=== PATIENT | male | born 1940 | race Two or more races ===

== ENCOUNTER 2016-09-02 01:29 | Inpatient (IN) | payer OTHER ==
[~2016-09-02] VITALS: Ht 165.1 cm; Wt 75.7 kg
[2016-09-02] MEDS ORDERED: MORPHINE SULFATE INJ 2 MG/ML DISP.SYRIN ONE (01:40)
[2016-09-02] MEDS ORDERED: ONDANSETRON HCL/PF 4 MG/2 ML VIAL ONE (01:40)
[2016-09-02 01:50] LABS: BASOPHILS # (AUTO) 0.1 /CMM (0.0-0.2); BASOPHILS % (AUTO) 0.7 % (0.0-2.0); DIFF TOTAL % 100 %; EOSINOPHILS # (AUTO) 0.2 /CMM (0.0-0.7); EOSINOPHILS % (AUTO) 1.7 % (0.0-6.0); HEMATOCRIT 48 % (39-51); HEMOGLOBIN 16.1 g/dL (13.5-17.5); LYMPHOCYTES % (AUTO) 28.6 % (20.0-44.0); MEAN CORPUSCULAR HEMOGLOBIN 30 PG (26.0-33.0); MEAN CORPUSCULAR HGB CONC 33 g/dl (31.0-36.0); MEAN CORPUSCULAR VOLUME 88 fL (80-96); MONOCYTES # (AUTO) 1.5 /CMM (0.1-1.30); MONOCYTES % (AUTO) 10.4 % (2.0-12.0); NEUTROPHILS # (AUTO) 8.3 /CMM (1.8-8.9); NEUTROPHILS % (AUTO) 58.6 % (43.0-81.0); PLATELET COUNT (AUTO) 204 /CMM (150-450); RED BLOOD CELL COUNT(AUTO) 5.48 MIL/uL (4.5-6.0); WHITE BLOOD COUNT (AUTO) 14.1 K/uL (4.3-11.0)
[2016-09-02] MEDS ORDERED: CT SWABBABLE VALVE TRANS SET 1 EA INFUS.SET MC ONE (01:53)
[2016-09-02] MEDS ORDERED: IOHEXOL-300 100 ML VIAL IV ONE (01:53)
[2016-09-02] MEDS ORDERED: IV NS 0.9% 250 ML IV ONE ×2 (01:53→11:01)
[2016-09-02 02:00] LABS: CALCIUM, SERUM 8.5 mg/dL (8.5-10.1); CREATININE 1.3 mg/dL (0.6-1.3); POTASSIUM 3.4 mmol/L (3.5-5.1)
[2016-09-02] MEDS ORDERED: MORPHINE SULFATE INJ 2 MG/ML DISP.SYRIN IV ONE (02:00)
[2016-09-02] MEDS ORDERED: ONDANSETRON HCL/PF 4 MG/2 ML VIAL IVP ONE (02:00)
[2016-09-02 02:08] LABS: INR 0.94 (0.87-1.13); PROTHROMBIN TIME 10.2 SECS (9.5-12.7); TROPONIN I 0.189 ng/mL (0.00-0.056)
[2016-09-02] MEDS ORDERED: NITROGLYCERIN 0.4 MG/TAB BOTTLE ONE (02:16)
[2016-09-02] MEDS ORDERED: NITROGLYCERIN 0.4 MG/TAB BOTTLE SL ONE (02:30)
[2016-09-02] MEDS ORDERED: ASPIRIN 325 MG TABLET PO ONE (03:00)
[2016-09-02] MEDS ORDERED: ASPIRIN 325 MG TABLET ONE (03:04)
[2016-09-02 03:25] VITALS: BP 120/81
[2016-09-02 03:30] VITALS: BP 120/81
[2016-09-02] MEDS ORDERED: Z GUARD REMEDY 2 OZ OINT TP PRN (03:30)
[2016-09-02] MEDS ORDERED: MAG HYDROX/AL HYDROX/SIMETH 30 ML UDC PO PRN (03:30)
[2016-09-02] MEDS ORDERED: ONDANSETRON HCL/PF 4 MG/2 ML VIAL IVP PRN (03:30)
[2016-09-02] MEDS ORDERED: ZOLPIDEM TARTRATE 5 MG TABLET PO PRN (03:30)
[2016-09-02] MEDS ORDERED: MAGNESIUM HYDROXIDE 30 ML UDC PO PRN (03:30)
[2016-09-02] MEDS ORDERED: HYDROCODONE/APAP 5/325MG 1 EACH TABLET PO PRN (03:30)
[2016-09-02] MEDS ORDERED: ACETAMINOPHEN 325 MG TABLET PO PRN (03:30)
[2016-09-02 06:56] VITALS: BP 110/74
[2016-09-02 08:00] VITALS: BP 114/73
[2016-09-02 08:33] LABS: PHOSPHORUS 3.6 mg/dL (2.5-4.9)
[2016-09-02 09:00] VITALS: BP 114/73
[2016-09-02] MEDS ORDERED: ENOXAPARIN SODIUM 80 MG/0.8 ML DISP.SYRIN SQ SCH (09:00)
[2016-09-02] MEDS ORDERED: ATORVASTATIN 10 MG TABLET PO SCH (09:00)
[2016-09-02] MEDS ORDERED: CARVEDILOL 12.5 MG TABLET PO SCH (09:00)
[2016-09-02 10:10] LABS: THYROID STIMULATING HORMONE 0.741 uIU/mL (0.358-3.74)
[2016-09-02] MEDS ORDERED: IV SET PRIMARY PUMP SET 1 EA INFUS.SET MC ONE (11:01)
[2016-09-02] MEDS: POTASSIUM CL. PREMIX PERIPHER. 50 ML IV SCH ×2 (11:23→13:25)
== END 2016-09-02 17:01 | disposition short-term general hospital (02) | DRG 282 ==
LOC: ER 01:31 → TELE 03:10
PROVIDERS: ADMIT Family Medicine; ATTEND Family Medicine
DX: I21.4 Non-ST elevation (NSTEMI) myocardial infarction (principal); I71.4 Abdominal aortic aneurysm, without rupture; N40.0 Benign prostatic hyperplasia without lower urinary tract symptoms; D72.829 Elevated white blood cell count, unspecified; K59.00 Constipation, unspecified; M19.90 Unspecified osteoarthritis, unspecified site
CPT/HCPCS: 36415; 71010-TC; 71260-TC; 80048-TC; 80061-TC; 82306; 83735-TC; 83880; 84100-TC; 84439-TC; 84443-TC; 84484-TC; 85025-TC; 85730-TC; 87081-TC; A4606; J2270; J2405; J3480; J7050; Q9967; Z7610

== ENCOUNTER 2016-10-18 22:02 | Emergency (ER) | payer OTHER ==
[~2016-10-18] VITALS: Ht 165.1 cm; Wt 72.6 kg
[2016-10-18 22:09] VITALS: BP 97/61
[2016-10-18 23:12] LABS: KETONES,URINE NEGATIVE (NEGATIVE); LEUKOCYTE ESTERASE ,URINE 2+ (NEGATIVE); PH,URINE 5.5 (5.0-8.0)
[2016-10-18 23:24] LABS: ADD UA MICROSCOPIC YES
[2016-10-18 23:50] LABS: ADD URINE CULTURE YES; RBC,URINE 20-30 /HPF (0-2); WBC,URINE 30-50 /HPF (0-3)
[2016-10-18 23:51] LABS: MUCUS,URINE Few /LPF (None Seen); URINALYSIS COMMENT FEW WBC CLUMPING
[2016-10-18] MEDS ORDERED: LEVOFLOXACIN (750 MG) 750 MG TABLET ONE (23:56)
[2016-10-19] MEDS ORDERED: LEVOFLOXACIN (750 MG) 750 MG TABLET PO SCH
== END 2016-10-19 00:01 | disposition home or self-care (01) ==
LOC: ER 22:03
DX: N30.90 Cystitis, unspecified without hematuria (principal); I25.2 Old myocardial infarction; Z88.2 Allergy status to sulfonamides
CPT/HCPCS: 81001; 87086; 99284; A4606; 81000-TC; Z7610